=== PATIENT | female | born 1960 | race Caucasian/White ===

== ENCOUNTER 2025-01-05 07:23 | Emergency (ER) | payer OTHER, SELFPAY ==
[2025-01-05 07:25] VITALS: BMI 28.3
--- NOTE | 2025-01-05 07:29 | EKG_ITS ---
[facility] Test Date: 2025-01-05 Pat Name: LIZA PRICE Department: Room: - Gender: Female Site Planner: : 1960 Requested By: José Antonio Kwok (JUSTICE) Order Number: [id number] Reading MD: José Antonio Kwok (DRUMS TEACHER) Measurements Intervals [place] Rate: 79 P: 62 DC: 152 QRS: -38 QRSD: 104 T: 70 QT: 401 QTc: 461 Interpretive Statements SINUS RHYTHM LEFT AXIS DEVIATION [QRS AXIS < -30] POSSIBLE ANTERIOR MYOCARDIAL INFARCTION , PROBABLY OLD [30 ms Q WAVE IN V3/V4, OR R < 0.2 mV IN V4] No previous ECG available for comparison /store/S0/[id number].pdf
[2025-01-05 07:44] VITALS: BP 106/75; PULSE 87; RESP 17; TEMP 36.7; O2SAT 96
--- NOTE | 2025-01-05 07:44 | XR_ITS ---
Examination: PA lateral chest 2 views TECHNIQUE: Upright PA lateral chest 2 views Exam date and time: 06/11/2024 0802 hours INDICATIONS: Chest pain shortness of breath beginning 2 days ago. FINDINGS: Significant pneumonia right lung with moderate right pleural fluid Enlarged cardiac contour, aortic valve replacement and prominent vascular congestion with septal edema Cardiac leads satisfactory position IMPRESSION: Significant right lung pneumonia with moderate right pleural fluid Mild heart failure
--- NOTE | 2025-01-05 07:46 | PD.EDRME ---
Rapid Medical Screening Exam RME Arrival date/time: 01/05/25 07:23 64-year-old female presents to ER for complaints of cp and sob Chief Complaint: Chest Pain Vital signs: Vital Signs Temperature 98.1 F 01/05/25 07:44 Pulse Rate 87 01/05/25 07:44 Respiratory Rate 17 01/05/25 07:44 Blood Pressure 106/75 01/05/25 07:44 Pulse Oximetry (%) 96 01/05/25 07:44 Oxygen Delivery Method Room Air 01/05/25 07:44
--- NOTE | 2025-01-05 08:17 | PC.NURSE ---
Patient to ER from lobby to room 1 with c/o left sided chest pain, sob and nausea x 2 days, patient states the pain is intermittent and is at 4/10 pressure type pain at this time. Skin is cool dry and slightly pale. EKG in progress by ACCOUNTING MACHINE SERVICER, daughter at bedside.
[2025-01-05 08:19] LABS: Basophils # (Auto) 0.1 Thou/mm3 (0.0-0.2); Basophils % (Auto) 1 % (0-2.5); Eosinophils # (Auto) 0.1 Thou/mm3 (0.0-0.5); Eosinophils % (Auto) 1 % (0-10); Hematocrit 29.6 % (36.0-46.0); Hemoglobin 9.6 g/dL (12.0-16.0); Immature Granulocytes % (Auto) 1 % (0-0); Immature Granulocytes Auto 0.12 Thou/mm3 (0.00-0.00); Lymphocytes % (Auto) 7 % (10-50); Mean Corpuscular HGB Conc 32.4 g/dl (31.0-37.0); Mean Corpuscular Volume 86 fL (80-100); Monocytes # (Auto) 1.3 Thou/mm3 (0.0-0.8); Monocytes % (Auto) 9 % (0-12); Neutrophils # (Auto) 11.2 Thou/mm3 (1.8-7.7); Neutrophils % (Auto) 82 % (37-80); Nucleated Red Blood Cell % 0 /100 WBC (0); Platelet Count 274 Thou/mm3 (140-440); Red Blood Count 3.43 Miln/mm3 (4.00-5.20); White Blood Count 13.7 Thou/mm3 (3.6-11.0)
[2025-01-05 08:28] VITALS: BP 166/72; PULSE 77; RESP 24; O2SAT 96
--- NOTE | 2025-01-05 08:29 | PC.NURSE ---
Patient made aware of need of urine sample, patient states she produces little urine since she has been on perotaneal dialysis, informed her to let me know if she is able. Call light within reach.
[2025-01-05 08:40] LABS: Alanine Aminotransferase 16 U/L (10-49); Albumin, Serum 3.2 gm/dL (3.4-4.8); Alkaline Phosphatase 118 U/L (46-116); Anion Gap 13 (7-16); Aspartate Amino Transferase 30 U/L (0-34); B-Type Natriuretic Peptide > 3280 pg/mL (0-100); BUN/Creatinine Ratio 6 Ratio (12-20); Bilirubin,Total 0.4 mg/dL (0.3-1.2); Blood Urea Nitrogen 60 mg/dL (9-23); Calcium 8.9 mg/dL (8.3-10.6); Calcium (Corrected) 9.5 mg/dL (8.5-10.1); Carbon Dioxide 23.1 mMol/L (20.0-31.0); Chloride 92 mMol/L (98-107); Creatinine (Component) 9.3 mg/dL (0.6-1.3); Estimated Creatinine Clearance 5.5 mL/min (>60); Globulin 3.2 gm/dL (2.3-3.5); Glucose 136 mg/dL (74-106); Lipase 29 U/L (12-53); Magnesium 1.9 mg/dL (1.6-2.6); Osmolality,Calculated 275 (275-295); Sodium 128 mMol/L (136-145); Total Protein 6.4 gm/dL (5.7-8.2); eGFR 4 See Note
[2025-01-05 08:43] LABS: Potassium 6.4 mMol/L (3.4-5.1)
[2025-01-05 08:51] LABS: INR 2.1 (0.9-1.3); Partial Thromboplastin Time 43.6 Seconds (22.0-36.0); Prothrombin Time 21.4 Seconds (9.0-12.2)
--- NOTE | 2025-01-05 09:23 | PD.EDCHEST ---
ED Chest Pain RME/HPI General Chief Complaint: Chest Pain Stated Complaint: LEFT SIDE CHEST PAIN WITH SOB X2DAYS Arrival date/time: 01/05/25 07:23 RME / HPI RME / HPI narrative: 01/05/25 07:23 64-year-old female presents to ER for complaints of cp and sob DR. 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 Symptoms are mild to moderate. Associated symptoms include nausea. No vomiting. No fevers, chills, or sweating. Related Data Home Medications ?Medication ?Instructions ?Recorded ?Confirmed bisoprolol fumarate 5 mg tablet 2.5 mg PO .qd 01/05/25 01/05/25 insulin regular human 100 unit/mL 15 unit subcut QDAY 01/05/25 01/05/25 injection solution (Humulin R Regular U-100 Insulin) losartan 25 mg tablet 25 mg PO QDAY 01/05/25 01/05/25 metoclopramide HCl 5 mg tablet 5 mg PO BID 01/05/25 01/05/25 midodrine 5 mg tablet 5 mg PO QDAY PRN low blood pressure 01/05/25 01/05/25 ondansetron 4 mg disintegrating 4 mg PO Q8H PRN nausea and vomiting 01/05/25 01/05/25 tablet warfarin 1 mg tablet 1 mg PO QDAY 01/05/25 01/05/25 Previous Rx's ?Medication ?Instructions ?Recorded azithromycin 250 mg tablet 250 mg PO QDAY 4 days #4 tabs 01/05/25 Allergies Allergy/AdvReac Type Severity Reaction Status Date / Time Sulfa (Sulfonamide Allergy Severe Swelling Verified 01/05/25 07:29 Antibiotics) of Lip/Tongue/Throat NSAIDS (Non-Steroidal Allergy Verified 01/05/25 07:29 Anti-Inflamma Review of Systems Review of Systems Systems Reviewed: All systems reviewed, normal except as documented Narrative Review of Systems: GEN: No fever, no chills, no weight loss EYES: No discharge, no visual changes, no pain HEENT: No ear pain, no congestion, no sore throat PULM: + shortness of breath, no cough, no congestion CV: + chest pain, no dyspnea on exertion, no palpitations GI: + nausea, no vomiting, no diarrhea, no pain, no constipation : No frequency, no urgency and no dysuria MUSC/SKEL: No joint pain, no back pain SKIN: No rash PSYCH: No hallucinations, no depression HEME/LYMPH: No easy bleeding or bruising tendencies NEURO: No weakness, no headache Past Medical History Past Medical History CARDIAC: Positive Cardiac Disorders (pacer to left upper chest), Myocardial Infarction, Atrial Fibrillation, Valvular Heart Disease and Hypertension GENITOURINARY: Positive Renal Disease (peroteneal dialysis daily) ENDOCRINE: Positive Diabetes Mellitus Type 1 Surgical History SURGICAL: Positive Cardiac Surgery, Open Heart Surgery, Valve Replacement (Double valve replacement march 2024) and Pacemaker (left upper chest pain march 2024) Social History SMOKING STATUS: Never smoker SUBSTANCE USE: does not use ALCOHOL: Never ED Exam Narrative Physical exam: GENERAL APPEARANCE: alert and oriented x 4, well-developed, well-nourished, no acute distress VITALS: All vitals were reviewed and the pulse ox is 96% on room air, which is normal according to my interpretation. HEENT: Normocephalic, atraumatic; pupils equal, round, reactive to light; EOMI; mucous membranes pink, moist; oropharynx clear NECK: Supple LUNGS: decreased lung sounds in the right base; no wheezes, no rales, no rhonchi HEART: Regular rate, regular rhythm; normal S1, S2; no murmurs ABDOMEN: non distended; normal BS; soft, no tenderness, no guarding, no rebound; no masses, no organomegaly, no hernia BACK: no CVA tenderness EXTREMITIES: atraumatic; no edema NEUROLOGIC: awake; alert and oriented x4; cranial nerves II-XII grossly intact; no focal sensory or motor deficits PSYCHIATRIC: appropriate mood and affect SKIN: warm, dry, normal color; no rashes Course Quality Measures none Orders Category Date Time Status Air Pollution Compliance Inspector Q4H START 00 Care 01/05/25 08:23 Active EKG (ED ONLY) *Do not use* NOW Care 01/05/25 07:29 Completed EKG (ED Only) Stat Exams 01/05/25 07:29 Draft XR chest 2V Stat Exams 01/05/25 07:44 Completed B-Type Natriuretic Peptide Stat Lab 01/05/25 08:10 Completed CBC Stat Lab 01/05/25 08:10 Completed Comprehensive Metabolic Panel Stat Lab 01/05/25 08:10 Completed Lipase Stat Lab 01/05/25 08:10 Completed Magnesium Stat Lab 01/05/25 08:10 Completed Partial Thromboplastin Time Stat Lab 01/05/25 08:10 Completed Prothrombin Time with INR Stat Lab 01/05/25 08:10 Completed Troponin I Stat Lab 01/05/25 08:10 Completed Troponin I Stat Lab 01/05/25 10:55 Completed Urinalysis Stat Lab 01/05/25 07:44 Ordered Azithromycin Po [Zithromax PO] Med 01/05/25 09:56 Discontinued 500 mg PO X1 ONE Furosemide [Lasix] Med 01/05/25 09:56 Discontinued 40 mg PO X1 ONE Sod Polystyrene Sulfon Susp [Kayexalate Susp] Med 01/05/25 10:55 Discontinued 30 gm PO X1 ONE Reevaluation(s) Reevaluation #1: Patient states she feels better and does not have anymore chest pain. Time: 09:26 Vital Signs Vital signs: Vital Signs Temperature 98.1 F 01/05/25 07:44 Pulse Rate 87 01/05/25 07:44 Respiratory Rate 17 01/05/25 07:44 Blood Pressure 106/75 01/05/25 07:44 Pulse Oximetry (%) 96 01/05/25 07:44 Oxygen Delivery Method Room Air 01/05/25 07:44 Chest Pain MDM Narrative MDM Narrative:: I, Tiana Miranda am scribing for and in the presence of Dr. Mohan. 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 Interpreted by me: sinus rhythm, rate 79, no peaked T waves) Lab and/or radiology exams considered but not ordered:: none Interpretation Summary: Procedure(s): XR chest 2V Accession Number(s): [id number] cc: Rissa (WOVEN LABEL DESIGNER),José Antonio RENDON; Parish Case MD; NO PRIMARY/FAMILY,PHYSICIAN~ Examination: PA lateral chest 2 views TECHNIQUE: Upright PA lateral chest 2 views Exam date and time: 06/11/2024 0802 hours INDICATIONS: Chest pain shortness of breath beginning 2 days ago. FINDINGS: Significant pneumonia right lung with moderate right pleural fluid Enlarged cardiac contour, aortic valve replacement and prominent vascular congestion with septal edema Cardiac leads satisfactory position IMPRESSION: Significant right lung pneumonia with moderate right pleural fluid Mild heart failure Dictated By: Parish Case MD Medications / Prescriptions Medications or Prescriptions considered but not ordered:: none Medication administrations:: Medication Administration History Discontinued Medications Azithromycin (Azithromycin 250 Mg Tablet) 500 mg PO X1 ONE Stop: 01/05/25 09:57 Last Admin: 01/05/25 10:04 Dose: 500 mg Documented By: KATTY Furosemide (Furosemide 40 Mg Tablet) 40 mg PO X1 ONE Stop: 01/05/25 09:57 Last Admin: 01/05/25 10:04 Dose: 40 mg Documented By: KATTY Sodium Polystyrene Sulfonate (Sod Polystyrene Sulfon Susp 15 Gm/60 Ml Btl) 30 gm PO X1 ONE Stop: 01/05/25 10:56 Last Admin: 01/05/25 11:58 Dose: 30 gm Documented By: KATTY see above Consultations Consultation(s) initiated? (list below): No Diagnosis Chest Pain Differential Diagnosis: atypical chest pain, costochondritis, chest pain and other (PE) Most likely diagnosis given after review of the tests above:: Pneumonia Dyspnea Hyperkalemia Admission Indicated Admission indicated?: not indicated Admission Request Was there a request for admission?: No Disposition Plan Disposition Plan: Discharge Discharge Attestation Discharge Attestation: The patient and all family members were given an opportunity to ask questions and understood the discharge instructions. Discharge instructions specifically effects, indications for sooner follow up or return to the emergency department, and the expected course of current diagnosis. Patient condition: Stable Discharge Plan Plan Patient Disposition: HOME (Self Care) Prescriptions/Referrals Prescriptions/Med Rec: New azithromycin 250 mg tablet 250 mg PO QDAY 4 Days Qty: 4 0RF Rx Instructions: start on day 2 of therapy No Action ondansetron 4 mg tablet,disintegrating 4 mg PO Q8H PRN (Reason: nausea and vomiting) midodrine 5 mg tablet 5 mg PO QDAY PRN (Reason: low blood pressure) bisoprolol fumarate 5 mg tablet 2.5 mg PO .qd Humulin R Regular U-100 Insuln 100 unit/mL solution 15 unit subcut QDAY losartan 25 mg tablet 25 mg PO QDAY warfarin 1 mg tablet 1 mg PO QDAY Rx Instructions: as directed by provider according to labwork metoclopramide HCl 5 mg tablet 5 mg PO BID Referrals: No Primary/Family,Physician [Primary Care Provider] - In 1 week Problem List Clinical Impression: Pneumonia, Dyspnea, Hyperkalemia Patient/Caregiver Discharge Instructions Education Materials: ED Shortness of Breath (Dyspnea), ED Pneumonia (Adult) Print Language: Turkish Stand Alone Forms: Makayla Award Info., Patient Portal Info Letter
[2025-01-05 10:03] VITALS: BP 143/102; PULSE 79; RESP 20; O2SAT 97
[2025-01-05 10:04] VITALS: BP 143/102; PULSE 78
[2025-01-05] MEDS: AZITHROMYCIN 250 MG TABLET 500 MG PO (10:04)
[2025-01-05] MEDS: Furosemide 40 MG TABLET PO (10:04)
[2025-01-05 10:08] VITALS: PULSE 74
[2025-01-05 11:37] LABS: Troponin I 0.084 ng/mL (0.0-0.045)
[2025-01-05] MEDS: SOD POLYSTYRENE SULFON SUSP 15 GM/60 ML BTL 30 GM PO (11:58)
[2025-01-05 12:36] VITALS: BP 141/54; PULSE 78; RESP 16; O2SAT 97
== END 2025-01-05 12:36 | disposition home or self-care (01) ==
PROVIDERS: Nurse Practitioner Primary Care; Emergency Provider Emergency Medicine
DX: J18.9 Pneumonia, unspecified organism (principal); I11.0 Hypertensive heart disease with heart failure; I50.9 Heart failure, unspecified; E87.5 Hyperkalemia; R94.31 Abnormal electrocardiogram [ECG] [EKG]; Z95.0 Presence of cardiac pacemaker; Z95.2 Presence of prosthetic heart valve
CPT/HCPCS: 36415; 71046; 80053; 81001; 83690; 83735; 83880; 84484; 85025; 85610; 85730; 93005; 99283; A9270